=== PATIENT | female | born 1990 | race Asian ===

== ENCOUNTER 2017-02-08 03:54 | Emergency (ER) | payer OTHER ==
[~2017-02-08] VITALS: Ht 165.1 cm; Wt 54.4 kg
[2017-02-08] MEDS ORDERED: NKM (03:57)
--- NOTE | 2017-02-08 04:34 | Emergency Room Report ---
History of Present Illness General Chief Complaint: Alcohol Intoxication Source: EMS Present Illness HPI This is a 26-year-old female who presents with alcohol intoxication. She called an [employer] (taxi) to take her home from the bar. She gave him the wrong address. The truck driver flatbed and not found her home and she was too intoxicated to give a coherent answer. So he called 911. Unable to get anything from the patient because of her intoxication. She does have a strong smell of alcoholic beverage on her breath. There was no trauma. No other complaint. History is limited because of her intoxication. Allergies: Coded Allergies: AMOXICILLIN (Verified Allergy, Unknown, 02/08/17) Patient History Past Medical History: see triage record, old chart reviewed, unable to obtain Past Surgical History: unable to obtain Pertinent Family History: unable to obtain Social History: Reports: alcohol use Last Menstrual Period: 4 days ago Now: No Immunizations: other Reviewed Nursing Documentation: PMH: Agreed, PSxH: Agreed Nursing Documentation-PMH Past Medical History: No Stated History Review of Systems Eye: Denies: eye pain, blurred vision ENT: Denies: ear pain, nose congestion, throat swelling Respiratory: Denies: cough, shortness of breath Cardiovascular: Denies: chest pain, palpitations Gastrointestinal: Denies: abdominal pain, diarrhea, nausea, vomiting Musculoskeletal: Denies: back pain, joint pain Skin: Denies: rash Neurological: Denies: headache, numbness Endocrine: Denies: increased thirst, increased urine Hematologic/Lymphatic: Denies: easy bruising All Other Systems: negative except mentioned in HPI Physical Exam Vital Signs Date Time Temp Pulse Resp B/P (MAP) Pulse Ox O2 Delivery O2 Flow Rate FiO2 02/08/17 03:54 98.1 78 16 107/50 98 Room Air vitals normal Sp02 EP Interpretation: reviewed, normal General Appearance: well appearing, no apparent distress, other - Very intoxicated Head: normocephalic, atraumatic Eyes: bilateral eye PERRL, bilateral eye EOMI ENT: hearing grossly normal, normal pharynx Neck: full range of motion, supple, no meningismus Respiratory: chest non-tender, lungs clear, normal breath sounds Cardiovascular #1: regular rate, rhythm, no murmur Gastrointestinal: normal bowel sounds, non tender, no mass, no organomegaly, no bruit, non-distended Musculoskeletal: back normal, normal range of motion Neurologic: grossly normal Psychiatric: mood/affect normal Skin: warm/dry Medical Decision Making Diagnostic Impression: Primary Impression: Acute alcoholic intoxication Qualified Codes: F10.929 - Alcohol use, unspecified with intoxication, unspecified ER Course Patient with alcohol intoxication. No trauma to warrant CT scan or x-rays. We' ll observe her until clinical sobriety or until she can get a ride home. Last Vital Signs Date Time Temp Pulse Resp B/P (MAP) Pulse Ox O2 Delivery O2 Flow Rate FiO2 02/08/17 03:54 98.1 78 16 107/50 98 Room Air Status: improved Disposition: HOME, SELF-CARE Condition: Stable Referrals: NON PHYSICIAN (PCP) Patient Instructions: Alcohol Intoxication, [id number] Additional Instructions: followup with your Dr. in 7 days. Abstain from drinking to excess. Return if worsen. JASSI DOYLE M.D. Feb 08, 2017 04:34
[2017-02-08 06:16] VITALS: BP 107/50
== END 2017-02-08 06:16 | disposition home or self-care (01) ==
LOC: EDBD 03:54 → EMR 04:24
DX: F10.129 Alcohol abuse with intoxication, unspecified (principal); Z88.0 Allergy status to penicillin
CPT/HCPCS: 99283